=== PATIENT | male | born 1945 | race Asian ===

== ENCOUNTER 2021-05-13 06:59 | Outpatient (CLI) | payer MEDICARE, BC | END 2021-05-13 23:59 | disposition home or self-care (01) | LOC: LAB 06:59 | PROVIDERS: ATTEND Surgery | DX: Z01.812 Encounter for preprocedural laboratory examination (principal); Z20.822 Contact with and (suspected) exposure to COVID-19 ==

== ENCOUNTER 2021-05-15 09:43 | Day surgery (SDC) | payer MEDICARE, BC ==
[2021-05-15] MEDS ORDERED: ONDANSETRON 4 MG/2 ML VIAL IV ONE (09:44)
[2021-05-15] MEDS ORDERED: GLYCOPYRROLATE 0.2 MG/ML VIAL IJ ONE (09:44)
[2021-05-15] MEDS ORDERED: NEOSTIGMINE METHYLSULFATE 10 MG/10 ML VIAL IM ONE (09:44)
[2021-05-15] MEDS ORDERED: LIDOCAINE-MPF 2% 5 ML VIAL IJ ONE (09:44)
[2021-05-15] MEDS ORDERED: IBUPROFEN 800 MG TABLET PO ONE ×2 (09:44→13:30)
[2021-05-15] MEDS ORDERED: ACETAMINOPHEN 325 MG TABLET PO ONE ×2 (09:44→13:30)
[2021-05-15] MEDS ORDERED: DEXAMETHASONE SOD PHOSPHATE 4 MG INJ IV ONE (09:44)
[2021-05-15] MEDS ORDERED: GABAPENTIN 300 MG CAPSULE PO ONE ×2 (09:44→13:30)
[2021-05-15] MEDS ORDERED: PROPOFOL 200 MG/20 ML BOTTLE IV ONE (09:44)
[2021-05-15] MEDS ORDERED: CEFAZOLIN 1 G VIAL IM ONE (09:44)
[2021-05-15] MEDS ORDERED: LIDOCAINE 1%-EPI 1:100,000 20 ML VIAL ONE ×2 (11:01→11:07)
[2021-05-15] MEDS ORDERED: FENTANYL CITRATE 100 MCG/2 ML AMPUL ONE ×2 (11:01→12:49)
[2021-05-15] MEDS ORDERED: BUPIVACAINE PF 0.5% 30 ML VIAL ONE (11:01)
[2021-05-15] MEDS ORDERED: BACITRACIN ZINC OINT 15 GM TUBE ONE (11:01)
[2021-05-15] MEDS ORDERED: ROCURONIUM BROMIDE 50 MG/5 ML VIAL ONE (11:01)
[2021-05-15] MEDS ORDERED: KETOROLAC TROMETHAMINE 30 MG INJ ONE (12:50)
[2021-05-15] MEDS ORDERED: ACETAMINOPHEN 325 MG TABLET ONE (13:50)
== END 2021-05-15 14:50 | disposition home or self-care (01) ==
LOC: DS 09:43
PROVIDERS: ATTEND Surgery
DX: K40.30 Unilateral inguinal hernia, with obstruction, without gangrene, not specified as recurrent (principal); I25.10 Atherosclerotic heart disease of native coronary artery without angina pectoris; M19.90 Unspecified osteoarthritis, unspecified site; Z79.899 Other long term (current) drug therapy; Z98.890 Other specified postprocedural states; Z72.89 Other problems related to lifestyle
CPT/HCPCS: 49507; 71045; 88302; J0690; J1100; J1885; J2405; J3010; J3490 ×6; J7120; A4649; A4663